=== PATIENT | female | born 1995 | race Caucasian/White ===

== ENCOUNTER 2017-08-03 11:51 | Day surgery (SDC) | payer BC ==
[~2017-08-03] VITALS: Ht 162.6 cm; Wt 51.7 kg
--- NOTE | ~2017-08-03 | OP ---
PATIENT NAME: BRENTON GIFFORD MEDICAL RECORD: [id number] :89 LOCATION:D.OPS ADMISSION DATE: SURGEON: SALVADOR BHATT MD DATE OF OPERATION: 08/03/2017 PREOPERATIVE DIAGNOSIS: Mons and perineal abscess. POSTOPERATIVE DIAGNOSES: Mons and perineal abscess. PROCEDURE: Incision and drainage of 14 mons and left labial abscesses. SURGEON: Salvador Bhatt MD CERAMIC ENGINEERING PROFESSOR: None. BLOOD LOSS: Minimal. ANESTHESIA: General. COMPLICATIONS: None. The entire examination was performed with the presence of a female nurse. Risks, possible complications and alternatives to procedure were discussed with the patient. She elected to proceed. OPERATIVE COURSE: The patient was conveyed to the operating room electively on 08/03/2017. General anesthesia was induced by the anesthesia staff. The patient was frog legged. The perineum and lower abdomen were sterilely prepped and draped. Utilizing curettes, I entered each one of the abscess cavities and curetted them out. The 2 largest abscess cavities were along the left labia majora, superiorly. Cultures were obtained. I then irrigated out each abscess cavity with hydrogen peroxide. No packing was used. I am not sure if this represents folliculitis with secondary abscesses. Certainly, the location within the pubic hair would be consistent with folliculitis. It could represent a variant of hidradenitis suppurativa or could represent eczema with a secondary skin infection. I think it most likely represents folliculitis with abscesses. The patient is being dismissed home with doxycycline as well as [place]. I will see her in the office in 2-3 weeks. TRANSINT:[id number] Voice Confirmation ID: [id number] DOCUMENT ID: [id number] SALVADOR BHATT MD at 1158 CC: ERIC CLARKE [id number] DICTATION DATE: 08/03/17 1504 WORLD LANGUAGE TEACHER: 08/03/17 1614 [facility] 08/03/17 [id number] [place] [address]
[2017-08-03 12:36] VITALS: BP 123/78; Ht 162.6 cm; Wt 51.7 kg
[2017-08-03 14:24] LABS: HEMATOCRIT 35.2 % (36.0-48.0); HEMOGLOBIN 12.2 g/dL (12-16); MCH 29.3 pg (26.0-34.0); MCHC 34.7 g/dL (31.0-37.0); MCV 84.6 fL (80.0-100.0); MEAN PLATELET VOLUME 10.2 fL (7.4-10.4); RBC 4.16 10x6/uL (4.00-5.40); RDW 12.2 % (11.5-14.5); WBC 4.8 10x3/uL (4.8-10.8)
[2017-08-03 14:38] LABS: HCG URINE NEGATIVE (NEGATIVE)
== END 2017-08-03 17:06 | disposition home or self-care (01) ==
LOC: D.OPS 11:51
PROVIDERS: Anesthesiology; Surgery
DX: L02.215 Cutaneous abscess of perineum (principal); N76.4 Abscess of vulva; Z01.812 Encounter for preprocedural laboratory examination